=== PATIENT | male | born 1975 | race Caucasian/White ===

== ENCOUNTER 2017-01-13 16:33 | Emergency (ER) | payer OTHER ==
[2017-01-13 16:37] VITALS: BMI 27.3
[2017-01-13] MEDS ORDERED: KETOROLAC TROMETHAMINE 30 MG/1 ML VIAL IVPUSH ONE (16:55)
[2017-01-13] MEDS ORDERED: SODIUM CHLORIDE 1,000 ML IV STA (16:55)
--- NOTE | 2017-01-13 17:00 | PDOC ---
History of Present Illness - General Chief Complaint: Pain, Acute Stated Complaint: BACK PAIN Time Seen by Provider: 01/13/17 16:43 History Source: Patient - History of Present Illness Occurred: reports: this afternoon Pain Location: reports: back Past History - Past Medical History Allergies/Adverse Reactions: Allergies Allergy/AdvReac Type Severity Reaction Status Date / Time No Known Drug Allergies Allergy Unknown Verified 01/13/17 16:37 Home Medications: Ambulatory Orders NK [No Known Home Medication] 01/13/17 Anemia: No Asthma: No Cancer: No Cardiac Disorders: No CVA: No COPD: No CHF: No Dementia: No Diabetes: No GI Disorders: No Disorders: No HTN: No Hypercholesterolemia: No Liver Disease: No Seizures: No Thyroid Disease: No - Surgical History Abdominal Surgery: Yes (HERNIA) Appendectomy: No Cardiac Surgery: No Cholecystectomy: No Lung Surgery: No Neurologic Surgery: No Orthopedic Surgery: No - Psycho/Social/Smoking Cessation Hx Anxiety: No Suicidal Ideation: No Smoking Status: Yes Smoking History: Former smoker Have you smoked in the past 12 months: Yes Number of Cigarettes Smoked Daily: 0 Information on smoking cessation initiated: No Hx Alcohol Use: No (OCCASIONALLY) Drug/Substance Use Hx: No Substance Use Type: None Hx Substance Use Treatment: No Trauma Specific PMHX - Complaint Specific PMHX Arthritis: No Review of Systems - Review of Systems Constitutional: No: Chills, Fever Respiratory: No: Shortness of Breath Cardiac (ROS): No: Chest Pain ABD/GI: No: Nausea, Vomiting, Abdominal cramping : No: Dysuria, Hematuria *Physical Exam - Vital Signs Last Vital Signs Temp Pulse Resp BP Pulse Ox 98.7 F 71 18 151/99 98 01/13/17 16:34 01/13/17 16:34 01/13/17 16:34 01/13/17 16:34 01/13/17 16:34 - Physical Exam General Appearance: Yes: Appropriately Dressed. No: Apparent Distress HEENT: positive: Normal Voice Neck: positive: Supple Respiratory/Chest: positive: Lungs Clear, Normal Breath Sounds. negative: Respiratory Distress Cardiovascular: positive: Regular Rate, S1, S2 Gastrointestinal/Abdominal: positive: Soft. negative: Tender Musculoskeletal: positive: Vertebral Tenderness (to L mid back). negative: CVA Tenderness Extremity: positive: Normal Inspection Integumentary: positive: Dry, Warm Neurologic: positive: Fully Oriented, Alert, Normal Mood/Affect ED Treatment Course - LABORATORY CBC & Chemistry Diagram: 01/13/17 17:20 01/13/17 17:20 Medical Decision Making - Medical Decision Making 01/13/17 16:56 42-year-old male, denies any past medical history, here with left mid back pain that started suddenly while sitting at home this evening. States pain was sharp , 101/10 and that he was unable to find a comfortable position. Pain has since improved, but still present. Denies nausea, vomiting, dysuria, hematuria, fever or chills. No history of similar pain. Denies any trauma or other obvious inciting agents. Has not yet taken anything for pain See exam L mid back pain MSK vs stone -Stable and well tyrese w/ no overt CVAT -pain control -lbas -?CT 01/13/17 18:27 *DC/Admit/Observation/Transfer Diagnosis at time of Disposition: Back pain Qualifiers: Back pain location: back pain in unspecified location Chronicity: acute Back pain laterality: left Qualified Code(s): M54.9 - Dorsalgia, unspecified - Discharge Dispostion Condition at time of disposition: Improved - Patient Instructions Printed Discharge Instructions: DI for Thoracic Back Pain Additional Instructions: Your labs and urine were normal today. The cause of your pain is most likely muscular and less likely a kidney stone. Take 600-800 of Motrin or Tylenol [id number] for pain as needed Return to ER if pain worsens and you develop nausea, vomiting, burning with urination or fever
[2017-01-13] MEDS ORDERED: KETOROLAC TROMETHAMINE 30 MG/1 ML VIAL ONE (17:05)
[2017-01-13 17:28] LABS: BASOPHIL 0.4 % (0-2.0); EOSINOPHIL 1.5 % (0-4.5); MCH 28.8 pg (25.7-33.7); MCHC 34.2 g/dl (32.0-35.9); MEAN CELL VOLUME 84.1 fl (80-96); MEAN PLT VOLUME 9.5 fl (7.5-11.1); NEUTROPHILS 61.8 % (42.8-82.8); PLATELET COUNT 171 K/MM3 (134-434); RDW 14.1 % (11.9-15.9); WHITE BLOOD COUNT 8.3 K/mm3 (4.0-10.0)
[2017-01-13 17:59] LABS: ALBUMIN 4.1 g/dl (3.4-5.0); ALK PHOS 98 U/L (45-117); ANION GAP 9 (8-16); BILIRUBIN,TOTAL 0.6 mg/dL (0.2-1.0); CO2 28 mmol/L (21-32); CREATININE 1.1 mg/dL (0.7-1.3); GLUCOSE,RANDOM 149 mg/dL (74-106); SGOT/AST 19 U/L (15-37); SGPT/ALT 36 U/L (12-78); TOT PROT 7.1 g/dl (6.4-8.2)
--- NOTE | 2017-01-13 18:09 | PDOC ---
*Physical Exam - Vital Signs Last Vital Signs Temp Pulse Resp BP Pulse Ox 98.7 F 71 18 151/99 98 01/13/17 16:34 01/13/17 16:34 01/13/17 16:34 01/13/17 16:34 01/13/17 16:34 ED Treatment Course - LABORATORY CBC & Chemistry Diagram: 01/13/17 17:20 01/13/17 17:20 - ADDITIONAL ORDERS Additional order review: Laboratory Results 01/13/17 17:20 Sodium 141 Potassium 4.0 Chloride 104 Carbon Dioxide 28 Anion Gap 9 BUN 16 D Creatinine 1.1 Creat Clearance w eGFR > 60 Random Glucose 149 H D Total Bilirubin 0.6 AST 19 ALT 36 D Alkaline Phosphatase 98 Total Protein 7.1 Albumin 4.1 01/13/17 17:20 RBC 5.43 MCV 84.1 MCHC 34.2 RDW 14.1 MPV 9.5 Neutrophils % 61.8 Lymphocytes % 30.3 Monocytes % 6.0 Eosinophils % 1.5 Basophils % 0.4 - Medications Given in the ED: ED Medications Discontinued Medications Generic Name Dose Route Start Last Admin Trade Name Freq PRN Reason Stop Dose Admin Sodium Chloride 1,000 mls @ 1,000 mls/hr 01/13/17 16:55 01/13/17 17:25 Normal Saline - IV 01/13/17 17:54 1,000 mls/hr ASDIR STA Administration Ketorolac Tromethamine 30 mg 01/13/17 16:55 01/13/17 17:25 Toradol Injection - IVPUSH 01/13/17 16:56 30 mg ONCE ONE Administration Medical Decision Making - Medical Decision Making 01/13/17 18:09 42 yo M presenting to the ER with sudden onset of flank pain, worse with movement no prior episodes like this No trauma No fevers or chills No dysuria Pt seen by Midlevel Provider under my direct supervision Ancillary studies reviewed I agree with plan as outlined by Midlevel Provider *DC/Admit/Observation/Transfer Diagnosis at time of Disposition: Back pain - Discharge Dispostion Disposition: HOME Condition at time of disposition: Improved - Prescriptions Prescriptions: Naproxen 250 mg PO BID PRN #20 tablet PRN Reason: Pain - Referrals Referrals: Shira Juárez MD [Primary Care Provider] - - Patient Instructions Printed Discharge Instructions: DI for Thoracic Back Pain Additional Instructions: Your labs and urine were normal today. The cause of your pain is most likely muscular and less likely a kidney stone. Take 600-800 of Motrin or Tylenol [id number] for pain as needed Return to ER if pain worsens and you develop nausea, vomiting, burning with urination or fever
[2017-01-13 18:16] LABS: URINE APPEARANCE CLEAR; URINE BILIRUBIN NEGATIVE (NEGATIVE); URINE BLOOD NEGATIVE (NEGATIVE); URINE COLOR YELLOW; URINE GLUCOSE (UA) NEGATIVE (NEGATIVE); URINE KETONE NEGATIVE (NEGATIVE); URINE LEUK ESTERASE NEGATIVE (NEGATIVE); URINE NITRITE NEGATIVE (NEGATIVE); URINE PROTEIN NEGATIVE (NEGATIVE); URINE UROBILINOGEN NEGATIVE mg/dL (0.2-1.0)
[2017-01-13 18:44] LABS: CALCIUM 9.4 mg/dL (8.5-10.1)
[2017-01-13 19:05] VITALS: BP 120/73; PULSE 66; TEMP 98.1
--- NOTE | 2017-01-13 19:16 | PDOC ---
*Physical Exam - Vital Signs Last Vital Signs Temp Pulse Resp BP Pulse Ox 98.1 F 66 18 120/73 100 01/13/17 19:04 01/13/17 19:04 01/13/17 19:04 01/13/17 19:04 01/13/17 19:04 - Physical Exam Comments: 01/13/17 19:15 Sign-out received from outgoing ER provider Santa. Pt interviewed and examined. Ancillary studies reviewed. Awaiting UA. ED Treatment Course - LABORATORY CBC & Chemistry Diagram: 01/13/17 17:20 01/13/17 17:20 - ADDITIONAL ORDERS Additional order review: Laboratory Results 01/13/17 01/13/17 18:05 17:20 Sodium 141 Potassium 4.0 Chloride 104 Carbon Dioxide 28 Anion Gap 9 BUN 16 D Creatinine 1.1 Creat Clearance w eGFR > 60 Random Glucose 149 H D Calcium 9.4 Total Bilirubin 0.6 AST 19 ALT 36 D Alkaline Phosphatase 98 Total Protein 7.1 Albumin 4.1 Urine Color Yellow Urine Appearance Clear Urine pH 7.0 Urine Protein Negative Urine Glucose (UA) Negative Urine Ketones Negative Urine Blood Negative Urine Nitrite Negative Urine Bilirubin Negative Urine Urobilinogen Negative Ur Leukocyte Esterase Negative 01/13/17 17:20 RBC 5.43 MCV 84.1 MCHC 34.2 RDW 14.1 MPV 9.5 Neutrophils % 61.8 Lymphocytes % 30.3 Monocytes % 6.0 Eosinophils % 1.5 Basophils % 0.4 - Medications Given in the ED: ED Medications Discontinued Medications Generic Name Dose Route Start Last Admin Trade Name Freq PRN Reason Stop Dose Admin Sodium Chloride 1,000 mls @ 1,000 mls/hr 01/13/17 16:55 01/13/17 17:25 Normal Saline - IV 01/13/17 17:54 1,000 mls/hr ASDIR STA Administration Ketorolac Tromethamine 30 mg 01/13/17 16:55 01/13/17 17:25 Toradol Injection - IVPUSH 01/13/17 16:56 30 mg ONCE ONE Administration *DC/Admit/Observation/Transfer Diagnosis at time of Disposition: Back pain Qualifiers: Back pain location: back pain in unspecified location Chronicity: acute Back pain laterality: left Qualified Code(s): M54.9 - Dorsalgia, unspecified - Discharge Dispostion Disposition: HOME Condition at time of disposition: Improved Admit: No - Prescriptions Prescriptions: Naproxen 250 mg PO BID PRN #20 tablet PRN Reason: Pain - Referrals Referrals: Shira Juárez MD [Primary Care Provider] - - Patient Instructions Printed Discharge Instructions: DI for Thoracic Back Pain Additional Instructions: Your labs and urine were normal today. The cause of your pain is most likely muscular and less likely a kidney stone. Take 600-800 of Motrin or Tylenol [id number] for pain as needed Return to ER if pain worsens and you develop nausea, vomiting, burning with urination or fever - Post Discharge Activity
== END 2017-01-13 19:49 | disposition home or self-care (01) ==
LOC: JER 16:33
PROC: 3E0333Z Introduction of Anti-inflammatory into Peripheral Vein, Percutaneous Approach (ICD-10-PCS; principal; 2017-01-13)
DX: M54.89 Other dorsalgia (principal); Z87.891 Personal history of nicotine dependence
CPT/HCPCS: 36415; 80053; 81003; 85025; 99282-25

== ENCOUNTER 2017-02-10 09:00 | Day surgery (SDC) | payer OTHER ==
[2017-02-09 13:03] VITALS: BMI 28.1
[~2017-02-10 09:00] MED LIST: ACETAMINOPHEN 325 MG TABLET (FP) PO PRN; CIPROFLOXACIN HCL 0.3% OPHTH 2.5ML BOTTLE OP SCH
[2017-02-10] MEDS ORDERED: CIPROFLOXACIN 0.3% EYE DROPS 5 ML BOTTLE ONE (09:14)
[2017-02-10 09:25] VITALS: BP 120/83; PULSE 68; TEMP 97.7
== END 2017-02-10 10:00 | disposition home or self-care (01) ==
LOC: JASU-SURG 09:00
PROVIDERS: ATTEND Ophthalmology
PROC: 08Q0XZZ Repair Right Eye, External Approach (ICD-10-PCS; principal; 2017-02-10)
DX: Z53.8 Procedure and treatment not carried out for other reasons (principal)

== ENCOUNTER 2017-02-24 08:51 | Day surgery (SDC) | payer OTHER ==
[2017-02-22 10:54] VITALS: BMI 28.1
[~2017-02-24 08:51] MED LIST changes: -ACETAMINOPHEN 325 MG TABLET (FP) PO PRN; -CIPROFLOXACIN HCL 0.3% OPHTH 2.5ML BOTTLE OP SCH; +LIDOCAINE HCL 2% JELLY (5 ML/TUBE) TP ONE; +TRIAMCINOLONE ACET 40MG/1ML VIAL IJ ONE
[2017-02-24] MEDS ORDERED: PHENYLEPHRINE 2.5% OPHTH SOLN 15 ML BOTTLE ONE (09:12)
[2017-02-24] MEDS ORDERED: FLURBIPROFEN 0.03% OPHTH SOLN 2.5 ML BOTTLE ONE (09:12)
[2017-02-24] MEDS ORDERED: TROPICAMIDE 1% OPHTH SOLN 15 ML BOTTLE ONE (09:12)
[2017-02-24] MEDS ORDERED: CYCLOPENTOLATE HCL 1% OPHTH SOLN 2 ML BOTTLE ONE (09:12)
[2017-02-24 09:14] VITALS: TEMP 98.4
[2017-02-24] MEDS: CIPROFLOXACIN 0.3% EYE DROPS 5 ML BOTTLE ONE ×3 (09:20→09:35)
[2017-02-24] MEDS ORDERED: TRIAMCINOLONE ACET 40MG/1ML VIAL ONE (10:57)
[2017-02-24] MEDS ORDERED: LIDOCAINE HCL 2% JELLY (5 ML/TUBE) TP ONE (10:57)
[2017-02-24] MEDS ORDERED: LIDOCAINE 1%/EPI 1:100000 (20 ML MULTI DOSE VIAL) ONE (10:57)
[2017-02-24] MEDS ORDERED: POVIDONE-IODINE 5% OPHTHALMIC PREP 30 ML SOLUTION OS ONE (10:57)
[2017-02-24] MEDS ORDERED: LIDOCAINE HCL 2% JELLY (5 ML/TUBE) ONE (10:58)
[2017-02-24] MEDS ORDERED: MIDAZOLAM HCL 2 MG/2 ML SINGLE DOSE VIAL ONE (11:13)
[2017-02-24] MEDS ORDERED: BSS (NA/CA/MG/K) BALANCED SALT SOLUTION OPHTH SOLN 15 ML BOTTLE OS ONE (11:20)
[2017-02-24] MEDS ORDERED: LIDOCAINE 1%/EPI 1:100000 (50 ML MULTI DOSE VIAL) INF ONE ×2 (11:20)
[2017-02-24] MEDS ORDERED: TRIAMCINOLONE ACET 40MG/1ML VIAL IJ ONE (11:52)
[2017-02-24 13:23] VITALS: BP 135/83; PULSE 57
--- NOTE | 2017-02-25 09:58 | OP ---
DATE OF OPERATION: 02/24/2017 PREOPERATIVE DIAGNOSIS: Pterygium, left eye. POSTOPERATIVE DIAGNOSIS: Pterygium, left eye. PROCEDURE: Excision of left pterygium with conjunctival autograft. SURGEON: Eric Irizarry M.D. ANESTHESIA: Topical with MAC. COMPLICATIONS: None. PROCEDURE: The patient was brought to the operating room and correctly identified along with the operative site. He was then prepped and draped in the usual sterile fashion including 5% Betadine solution in the conjunctival sac and an eyelid drape. An eyelid speculum was then placed into the left eye. The pterygium was inspected and marked with a marking pen at its base. Two relaxing incisions were made in the conjunctivae just above and below the pterygium. Dissection was taken down to bare sclera. The pterygium was then bluntly dissected from the corneal surface using Johanne scissors as well as forceps. The remaining corneal defect was polished using a . The pterygium was noted to retract, and the base of the pterygium was then excised using Johanne scissors. Care was made not to damage the medial rectus tendon by elevating the pterygium during excision. A portion of the subconjunctival fibrovascular tissue was dissected as well. The conjunctival defect was then measured and measured 7 mm at the limbus versus 8 mm vertically posteriorly, by 7 mm horizontally. Attention was then placed to the superotemporal conjunctivae, and an appropriate sized conjunctival graft was then created by marking the conjunctival surface with a marking pen as well as freeing the conjunctivae from tenons by injecting lidocaine 1% subconjunctivally. The graft was then brought over and secured in place with six 10-0 nylon interrupted sutures. At the end of the procedure, the graft is noted to be well positioned, approximately 1-2 mm in limbus. No gait was noted. Subconjunctival Kenalog given. Topical vancomycin given, the eye patch, and the patient discharged home from the operating room in a stable condition. ERIC IRIZARRY M.D. [id number]
--- NOTE | 2017-02-25 11:43 | PATH ---
Surgical Pathology Report Patient Name: KATHY FIELD [facility]. Rec. #: [id number] /Age/Gender: 1975 (Age: 42) / M Account: [id number] Location: [facility] SURGICAL Taken: 02/24/2017 Received: 02/24/2017 Reported: 02/25/2017 Physicians: Elder Pryor M.D. Specimen(s) Received PTERYGIUM LEFT EYE Clinical History Pterygium left eye Final Diagnosis CONJUNCTIVA, LEFT EYE, EXCISION: PTERYGIUM. Electronically Signed Brian Freire M.D. Gross Description Received in formalin, labeled "pterygium left eye" is a alicea, irregular portion of soft tissue measuring 1.1 cm. in greatest dimension. The specimen is submitted in toto in one cassette. 02/24/201702/24/2017
== END 2017-02-24 13:25 | disposition home or self-care (01) ==
LOC: JASU-SURG 08:51
PROVIDERS: ATTEND Ophthalmology
PROC: 08U107Z Supplement of Left Eye with Autologous Tissue Substitute, Open Approach (ICD-10-PCS; principal; 2017-02-24 11:00)
DX: H11.002 Unspecified pterygium of left eye (principal)
CPT/HCPCS: 88304-TC

== ENCOUNTER 2021-07-02 22:59 | Emergency (ER) | payer OTHER ==
[2021-07-02 23:17] VITALS: TEMP 97.9; BMI 27.3
[2021-07-03] MEDS ORDERED: ACETAMINOPHEN 1000 MG/100 ML BAG IVPB ONE (00:05)
[2021-07-03] MEDS ORDERED: ACETAMINOPHEN INJECTION 100 ML IVPB ONE (00:28)
[2021-07-03 00:46] LABS: BASO % 0.5 % (0-2.0); EOS % 2.8 % (0-4.5); HEMATOCRIT 45.1 % (35.4-49); HEMOGLOBIN 15.5 GM/dL (11.7-16.9); LYMPH % 34.9 % (8-40); MCH 28.3 pg (25.7-33.7); MCHC 34.3 g/dl (32.0-35.9); MEAN CELL VOLUME 82.5 fl (80-96); MEAN PLT VOLUME 8.6 fl (7.5-11.1); MONO % 7.8 % (3.8-10.2); PLATELET COUNT 174 10^3/uL (134-434); RBC 5.47 M/mm3 (4.00-5.60); RDW 14.9 % (11.9-15.9); WHITE BLOOD COUNT 6.8 K/mm3 (4.0-10.0)
[2021-07-03 01:28] LABS: ALBUMIN 3.9 g/dl (3.4-5.0); BILIRUBIN,TOTAL 0.5 mg/dL (0.2-1); BLOOD UREA NITROGEN 19.6 mg/dL (7-18); CALCIUM 8.8 mg/dL (8.5-10.1); CREATININE 1.1 mg/dL (0.55-1.3); MAGNESIUM 2.4 mg/dL (1.8-2.4)
[2021-07-03 03:03] LABS: MAGNESIUM 2.3 mg/dL (1.8-2.4)
[2021-07-03 03:57] VITALS: BP 116/83; PULSE 53
== END 2021-07-03 04:04 | disposition home or self-care (01) ==
LOC: JER 22:59
PROC: 3E0333Z Introduction of Anti-inflammatory into Peripheral Vein, Percutaneous Approach (ICD-10-PCS; principal; 2021-07-02)
DX: R00.2 Palpitations (principal)
CPT/HCPCS: 36415; 71046-TC-FY; 80053; 82550; 83735; 84443; 84484; 85025; 93005; 93010; 99285-25

== ENCOUNTER 2022-05-25 00:05 | Emergency (ER) | payer OTHER ==
[2022-05-25 00:23] VITALS: RESP 18; BMI 28.1
[2022-05-25 01:32] VITALS: BP 129/77; PULSE 65; TEMP 97.1
[2022-05-25] MEDS ORDERED: HYDROCORTISONE 0.5% TOPICAL OINTMENT TUBE TP ONE (02:12)
[2022-05-25] MEDS ORDERED: HYDROCORTISONE 1% TOPICAL CREAM 30 GM TUBE TP ONE (02:30)
[2022-05-25 03:02] LABS: BASO % 0.4 % (0-2.0); EOS % 2.5 % (0-4.5); HEMATOCRIT 47.3 % (35.4-49); HEMOGLOBIN 16.1 GM/dL (11.7-16.9); LYMPH % 32.6 % (8-40); MCH 28.1 pg (25.7-33.7); MCHC 34.1 g/dl (32.0-35.9); MEAN CELL VOLUME 82.4 fl (80-96); MEAN PLT VOLUME 9.3 fl (7.5-11.1); MONO % 8.6 % (3.8-10.2); NEUT % 55.9 % (42.8-82.8); PLATELET COUNT 186 10^3/uL (134-434); RBC 5.75 M/mm3 (4.00-5.60); RDW 14.5 % (11.9-15.9); WHITE BLOOD COUNT 8.9 K/mm3 (4.0-10.0)
[2022-05-25 03:15] LABS: CALCIUM 9.5 mg/dL (8.5-10.1)
[2022-05-25 03:16] LABS: ALBUMIN 4.2 g/dl (3.4-5.0)
[2022-05-25 03:19] LABS: CREATININE 1.1 mg/dL (0.55-1.3)
[2022-05-25 03:21] LABS: BILIRUBIN,TOTAL 0.5 mg/dL (0.2-1); TOT PROT 7.1 g/dl (6.4-8.2)
[2022-05-25 03:27] LABS: BLOOD UREA NITROGEN 19.6 mg/dL (7-18)
== END 2022-05-25 04:41 | disposition home or self-care (01) ==
LOC: JER 00:05
DX: R20.2 Paresthesia of skin (principal)
CPT/HCPCS: 36415; 80053; 85025; 99283-25

== ENCOUNTER 2022-06-20 01:16 | Emergency (ER) | payer OTHER ==
[2022-06-20 01:30] VITALS: BP 135/87; PULSE 70; RESP 18; TEMP 97.9; BMI 28.1
[2022-06-20] MEDS ORDERED: ACETAMINOPHEN 500 MG TABLET (FP) PO ONE (03:49)
== END 2022-06-20 06:08 | disposition home or self-care (01) ==
LOC: JER 01:16
DX: M77.02 Medial epicondylitis, left elbow (principal)
CPT/HCPCS: 73070-TC-LT-FY; 99283-25